=== PATIENT | female | born 1960 | race Caucasian/White ===

== ENCOUNTER 2018-08-18 15:48 | Emergency (ER) | payer OTHER ==
[~2018-08-18] VITALS: Ht 157.5 cm; Wt 116.5 kg
[~2018-08-18 15:48] MED LIST: METF500T27 PO; OXYC-302 PO; SULF1TAB24 PO
[2018-08-18 16:35] LABS: MEAN CORPUSCULAR HEMOGLOBIN 29.7 pg (27.0-34.8); MEAN CORPUSCULAR HGB CONC 33.5 g/dL (32.4-35.8); MEAN CORPUSCULAR VOLUME 88.6 fL (80-100); MEAN PLATELET VOLUME 8.1 fL (7.4-10.4); PLATELET COUNT 310 x10^3/uL (130-400); RED BLOOD COUNT 4.89 x10^6/uL (3.82-5.3)
[2018-08-18 16:36] LABS: MD YES
[2018-08-18 16:44] LABS: ALANINE AMINOTRANSFERASE 22 U/L (12-78); ALBUMIN 3.4 g/dL (3.4-5.0); ANION GAP 9 mmol/L (5-15); CALCIUM 8.6 mg/dL (8.5-10.1); CHLORIDE 106 mmol/L (98-107); CREATININE 0.65 mg/dL (0.55-1.02)
[2018-08-18 16:46] LABS: ALKALINE PHOSPHATASE 146 U/L (45-117); BILIRUBIN,TOTAL 0.4 mg/dL (0.2-1.0); TOTAL PROTEIN 8.4 g/dL (6.4-8.2)
[2018-08-18 16:48] LABS: RAPID INFLUENZA A Negative (Negative); RAPID INFLUENZA B Negative (Negative)
[2018-08-18] MEDS ORDERED: CEFTRIAXONE 1,000 MG IM ONE (17:00)
[2018-08-18 17:01] LABS: BAND#(MANUAL) 0.18 x10^3/uL; BANDS%(MANUAL) 1 % (0-7); LYMPH#(MANUAL) 1.09 x10^3/uL (1-3.4); LYMPHS% (MANUAL) 6 % (22-44); MONOS#(MANUAL) 1.09 x10^3/uL (0.3-2.7); MONOS% (MANUAL) 6 % (2-9); SEG#(MANUAL) 15.75 x10^3/uL (1.8-6.8); SEGS% (MANUAL) 87 % (42-75)
[2018-08-18 17:02] LABS: <PLATELET ESTIMATE> ADEQUATE; <PLT MORPHOLOGY> NORMAL PLT MORPH; <RBC MORPHOLOGY> NORMAL
[2018-08-18] MEDS ORDERED: CEFTRIAXONE 1,000 MG ONE (17:04)
[2018-08-18] MEDS ORDERED: LIDOCAINE-MPF 1%, 2ML ONE (17:05)
[2018-08-18 17:31] VITALS: BP 157/84
[2018-08-18] MEDS ORDERED: ACETAMINOPHEN 500 MG TABLET ONE (17:37)
[2018-08-18] MEDS ORDERED: ACETAMINOPHEN 500 MG TABLET PO ONE (18:00)
== END 2018-08-18 17:44 | disposition home or self-care (01) ==
LOC: ED 17:03
DX: J02.0 Streptococcal pharyngitis (principal); I10 Essential (primary) hypertension; E11.9 Type 2 diabetes mellitus without complications
CPT/HCPCS: 36415; 71046; 80053; 85025; 87400; 87880; 96372; 99284; J0696

== ENCOUNTER 2020-01-22 20:52 | Emergency (ER) | payer MEDICAID, OTHER ==
[~2020-01-22] VITALS: Ht 154.9 cm; Wt 116.1 kg
[2020-01-22 21:02] VITALS: BP 137/86
[2020-01-22 21:40] LABS: BASOPHILS # (AUTO) 0.04 x10^3/uL (0-0.1); BASOPHILS % (AUTO) 1 % (0-1); EOSINOPHILS # (AUTO) 0.19 x10^3/uL (0-0.4); EOSINOPHILS % (AUTO) 3 % (1-7); LYMPHOCYTES # (AUTO) 2.46 x10^3/uL (1-3.4); LYMPHOCYTES % (AUTO) 34 % (22-44); MD NO; MEAN CORPUSCULAR HGB CONC 33.3 g/dL (32.4-35.8); MEAN CORPUSCULAR VOLUME 90.1 fL (80-100); MEAN PLATELET VOLUME 7.6 fL (7.4-10.4); MONOCYTES % (AUTO) 8 % (2-9); NEUTROPHILS # (AUTO) 3.88 x10^3/uL (1.8-6.8); NEUTROPHILS % (AUTO) 54 % (42-75); PLATELET COUNT 294 x10^3/uL (130-400); RED BLOOD COUNT 4.44 x10^6/uL (3.82-5.3); RED CELL DISTRIBUTION WIDTH 14.6 % (9.6-15.2)
[2020-01-22 21:50] LABS: ALANINE AMINOTRANSFERASE 22 U/L (12-78); ALBUMIN 3.2 g/dL (3.4-5.0); ANION GAP 7 mmol/L (5-15); CALCIUM 8.3 mg/dL (8.5-10.1); CHLORIDE 108 mmol/L (98-107); CREATININE 1.02 mg/dL (0.55-1.02)
[2020-01-22 21:54] LABS: ALKALINE PHOSPHATASE 104 U/L (45-117); BILIRUBIN,TOTAL 0.3 mg/dL (0.2-1.0); TOTAL PROTEIN 7.7 g/dL (6.4-8.2); TROPONIN I < 0.015 ng/mL (0.000-0.045)
== END 2020-01-22 22:31 | disposition home or self-care (01) ==
LOC: ED 22:26
DX: R51 Headache (principal); R42 Dizziness and giddiness; F43.0 Acute stress reaction; R94.31 Abnormal electrocardiogram [ECG] [EKG]; I10 Essential (primary) hypertension; E11.9 Type 2 diabetes mellitus without complications; M19.90 Unspecified osteoarthritis, unspecified site; Z87.891 Personal history of nicotine dependence
CPT/HCPCS: 36415; 80053; 84443; 84484; 85025; 93005; 99284

== ENCOUNTER 2020-06-03 16:58 | Emergency (ER) | payer MEDICAID ==
[~2020-06-03] VITALS: Ht 154.9 cm; Wt 116.3 kg
--- NOTE | 2020-06-03 17:34 | NUR ---
first contact with pt. pt c/o intermittent cp, left foot swelling and blurry vision. pt stated"i don't have any pain at this moment." no edema present on left foot. pt's aox4. resps even and unlabored. skin intact, neuro intact. all monitors in place. call light within reach. nsr rate 70's on traffic monitor specialist. edmd at bedside evaluating at this time.
--- NOTE | 2020-06-03 17:58 | NUR ---
LAB AT BEDSIDE.
[2020-06-03] MEDS ORDERED: SODIUM CHLORIDE FLUSH 10ML SYR IVF ONE (18:00)
[2020-06-03 18:16] LABS: BASOPHILS % (AUTO) 1 % (0-1); EOSINOPHILS % (AUTO) 2 % (1-7); LYMPHOCYTES % (AUTO) 31 % (22-44); MEAN CORPUSCULAR HEMOGLOBIN 29.6 pg (27.0-34.8); MEAN CORPUSCULAR HGB CONC 33.4 g/dL (32.4-35.8); MEAN PLATELET VOLUME 7.5 fL (7.4-10.4); MONOCYTES % (AUTO) 9 % (2-9); NEUTROPHILS % (AUTO) 58 % (42-75); PLATELET COUNT 290 x10^3/uL (130-400); RED BLOOD COUNT 4.56 x10^6/uL (3.82-5.3); RED CELL DISTRIBUTION WIDTH 13.7 % (9.6-15.2)
[2020-06-03 18:18] LABS: MD NO
[2020-06-03 18:29] LABS: ALBUMIN 3.1 g/dL (3.4-5.0); ANION GAP 6 mmol/L (5-15); CALCIUM 8.5 mg/dL (8.5-10.1); CHLORIDE 111 mmol/L (98-107); CREATININE 0.62 mg/dL (0.55-1.02)
[2020-06-03 18:33] LABS: TROPONIN I < 0.015 ng/mL (0.000-0.045)
--- NOTE | 2020-06-03 18:46 | NUR ---
report given to eryn lauren.
[2020-06-03 19:10] VITALS: BP 139/76
== END 2020-06-03 19:14 | disposition home or self-care (01) ==
LOC: ED 17:55
DX: R07.89 Other chest pain (principal); R94.31 Abnormal electrocardiogram [ECG] [EKG]; I10 Essential (primary) hypertension; E11.9 Type 2 diabetes mellitus without complications; M19.90 Unspecified osteoarthritis, unspecified site
CPT/HCPCS: 36415; 71045; 80048; 82040; 82962; 84484; 85025; 93005; 99285

== ENCOUNTER 2020-06-27 08:17 | Outpatient (CLI) | payer MEDICAID ==
[2020-06-27] MEDS ORDERED: FENTANYL PF 100 MCG/2ML ONE (09:50)
[2020-06-27] MEDS ORDERED: FLUMAZENIL 0.1 MG/1 ML, 5ML ONE (09:50)
[2020-06-27] MEDS ORDERED: MIDAZOLAM 1 MG/ML, 5ML ONE (09:50)
[2020-06-27] MEDS ORDERED: NALOXONE 1 MG/ML, 2ML ONE (09:51)
== END 2020-06-27 23:59 | disposition home or self-care (01) ==
LOC: RAD 08:17
PROVIDERS: ATTEND Family Medicine
DX: M54.16 Radiculopathy, lumbar region (principal); M54.5 Low back pain; I87.329 Chronic venous hypertension (idiopathic) with inflammation of unspecified lower extremity; L03.116 Cellulitis of left lower limb; E11.9 Type 2 diabetes mellitus without complications; I10 Essential (primary) hypertension; Z79.899 Other long term (current) drug therapy; Z82.3 Family history of stroke
CPT/HCPCS: 72148; 99156; 99157; J2250; J3010; J2310

== ENCOUNTER 2021-01-04 01:12 | Emergency (ER) | payer MEDICAID ==
[~2021-01-04] VITALS: Ht 154.9 cm; Wt 118.2 kg
[~2021-01-04 01:12] MED LIST changes: -OXYC-302 PO; +OXYC1TAB14 PO; +SULF-23 PO; -SULF1TAB24 PO
--- NOTE | 2021-01-04 01:30 | NUR ---
THIS IS A 60 YO F W/ C/O LLE EDEMA X3 DAYS. HX:HTN, VASC INSUFFICIENCY. NEWLY TAKING ATORVASTATIN. PT RESTING ON GURNEY W/ CALL LIGHT IN REACH AND SIDE RAILS UPX2. RESP EVEN AND UNLABORED, JONNIE.
[2021-01-04 02:24] LABS: BASOPHILS % (AUTO) 1 % (0-1); EOSINOPHILS % (AUTO) 3 % (1-7); LYMPHOCYTES % (AUTO) 31 % (22-44); MEAN CORPUSCULAR HEMOGLOBIN 29.9 pg (27.0-34.8); MEAN CORPUSCULAR HGB CONC 33.5 g/dL (32.4-35.8); MEAN PLATELET VOLUME 7.4 fL (7.4-10.4); MONOCYTES % (AUTO) 10 % (2-9); NEUTROPHILS % (AUTO) 55 % (42-75); PLATELET COUNT 303 x10^3/uL (130-400); RED BLOOD COUNT 4.36 x10^6/uL (3.82-5.3)
[2021-01-04 02:32] LABS: MD NO
--- NOTE | 2021-01-04 02:32 | NUR ---
PT REPORTS HAD US DONE AT [facility] X2 DAYS AGO. US AT BEDSIDE.
[2021-01-04 02:35] LABS: ALBUMIN 3.2 g/dL (3.4-5.0); ANION GAP 5 mmol/L (5-15); CALCIUM 8.4 mg/dL (8.5-10.1); CHLORIDE 106 mmol/L (98-107)
[2021-01-04 02:41] LABS: ALANINE AMINOTRANSFERASE 22 U/L (12-78); ALKALINE PHOSPHATASE 123 U/L (45-117); BILIRUBIN,TOTAL 0.2 mg/dL (0.2-1.0); CREATININE 0.59 mg/dL (0.55-1.02); TOTAL PROTEIN 7.6 g/dL (6.4-8.2); TROPONIN I < 0.015 ng/mL (0.000-0.045)
--- NOTE | 2021-01-04 03:23 | NUR ---
PT AMBULATORY W/ A STEADY GAIT TO THE BR.
[2021-01-04 03:48] VITALS: BP 134/64
--- NOTE | 2021-01-04 04:09 | NUR ---
ALL TESTS RESULTED. PT IS UP FOR RECHECK AT THIS TIME.
--- NOTE | 2021-01-04 04:37 | NUR ---
Patient given discharge instructions and they have confirmed that they understand the instructions. Patient ambulatory with steady gait using own cane.
== END 2021-01-04 04:38 | disposition home or self-care (01) ==
LOC: ED 01:42
DX: R60.0 Localized edema (principal); I87.2 Venous insufficiency (chronic) (peripheral); R07.89 Other chest pain; I10 Essential (primary) hypertension; E11.9 Type 2 diabetes mellitus without complications; M19.90 Unspecified osteoarthritis, unspecified site; Z87.891 Personal history of nicotine dependence
CPT/HCPCS: 36415; 71045; 80053; 83880; 84484; 85025; 93005; 93970; 99285

== ENCOUNTER 2021-03-27 11:15 | Emergency (ER) | payer MEDICAID ==
[~2021-03-27] VITALS: Ht 154.9 cm; Wt 120.6 kg
--- NOTE | 2021-03-27 12:02 | NUR ---
batch dumper: Pt ambulatory to room from lobby at this time.
--- NOTE | 2021-03-27 12:27 | NUR ---
First contact: NAUSEA, DIZZINESS SINCE 929 TODAY. PT TO BED WITH STEADY GAIT. ATTACHED TO MONITORS AND POSTIONED TO COMFORT. PT WITH APPROX 100 CC EMISIS IN EMISIS BAG AFTER VOMITING. AWAITING ORDERS.
--- NOTE | 2021-03-27 13:13 | NUR ---
DR. OSBORNE TO BEDSIDE FOR EVALUATION. VSS.
[2021-03-27] MEDS ORDERED: ONDANSETRON 2MG/ML, 2ML ONE (13:28)
[2021-03-27] MEDS ORDERED: ONDANSETRON 2MG/ML, 2ML IVPush ONE (13:30)
[2021-03-27] MEDS ORDERED: SODIUM CHLORIDE 0.9% 1,000ML IVBOLUS ONE (13:30)
[2021-03-27 13:44] LABS: BASOPHILS % (AUTO) 0 % (0-1); EOSINOPHILS % (AUTO) 0 % (1-7); LYMPHOCYTES % (AUTO) 11 % (22-44); MEAN CORPUSCULAR HEMOGLOBIN 29.9 pg (27.0-34.8); MEAN CORPUSCULAR HGB CONC 33.7 g/dL (32.4-35.8); MEAN PLATELET VOLUME 7.7 fL (7.4-10.4); MONOCYTES % (AUTO) 4 % (2-9); NEUTROPHILS % (AUTO) 84 % (42-75); PLATELET COUNT 297 x10^3/uL (130-400); RED BLOOD COUNT 4.49 x10^6/uL (3.82-5.3); RED CELL DISTRIBUTION WIDTH 14.8 % (9.6-15.2)
[2021-03-27 13:54] LABS: ALBUMIN 3.3 g/dL (3.4-5.0); ANION GAP 6 mmol/L (5-15); CALCIUM 8.6 mg/dL (8.5-10.1); CHLORIDE 106 mmol/L (98-107)
[2021-03-27 13:57] LABS: ALANINE AMINOTRANSFERASE 28 U/L (12-78); ALKALINE PHOSPHATASE 111 U/L (45-117); BILIRUBIN,TOTAL 0.4 mg/dL (0.2-1.0); TOTAL PROTEIN 8.3 g/dL (6.4-8.2)
--- NOTE | 2021-03-27 13:58 | NUR ---
PT WITH STEADY GAIT TO BATHROOM TO PROVIDE UA
[2021-03-27 15:00] LABS: MICROSCOPIC INDICATED
--- NOTE | 2021-03-27 15:02 | NUR ---
REPORT TO [place].
--- NOTE | 2021-03-27 15:20 | NUR ---
LATE ENTRY 1500, SBAR RPT REC'D AND ASSUMED PT CARE. PT RPTS NAUSEA IMPROVED. DISCUSSED PO FLUID CHALLENGE.
--- NOTE | 2021-03-27 15:22 | NUR ---
PO FLUID CHALLENGE STARTED. PT GIVEN WATER, ICE, SPRITE. VERBALIZES UNDERSTANDING TO TAKE SMALL SIPS EVRY FEW MINUTES. CALL LIGHT W/I REACH. NAD NOTED
--- NOTE | 2021-03-27 15:39 | NUR ---
DR OSBORNE AT BEDSIDE, TEST RESULTS REVIEWED.
--- NOTE | 2021-03-27 15:40 | NUR ---
PT TOLLERATING PO FLUIDS. PLAN FOR D/C HOME AFTER PCXR. PT VERBALIZES UNDERSTANDING.
[2021-03-27 17:11] VITALS: BP 123/67
--- NOTE | 2021-03-27 17:12 | NUR ---
Patient/Caregiver given discharge instructions and they have confirmed that they understand the instructions. Patient ambulatory with steady gait. NAD, all questions answered appropriately, denies additional needs at this time. No personal belongings left in room after discharge.
== END 2021-03-27 17:13 | disposition home or self-care (01) ==
LOC: ED 11:31
DX: R11.2 Nausea with vomiting, unspecified (principal); E86.0 Dehydration; R10.9 Unspecified abdominal pain; E11.9 Type 2 diabetes mellitus without complications; I10 Essential (primary) hypertension; Z87.891 Personal history of nicotine dependence
CPT/HCPCS: 36415; 71045; 80053; 81001; 83690; 85025; 87086; 93005; 96361; 96374; 99285; J2405; J7030